=== PATIENT | male | born 1950 | race Two or more races ===

== ENCOUNTER 2019-09-06 14:27 | Outpatient (CLI) | payer OTHER | END 2019-09-06 20:32 | disposition home or self-care (01) | LOC: MRD 14:27 | PROVIDERS: ATTEND Internal Medicine Pulmonary Disease | DX: I51.7 Cardiomegaly (principal); I25.10 Atherosclerotic heart disease of native coronary artery without angina pectoris | CPT/HCPCS: 71046 ==